=== PATIENT | female | born 1935 | race Caucasian/White ===

== ENCOUNTER 2017-02-27 10:48 | Observation (INO) | payer MEDICARE ==
[2017-02-27] MEDS ORDERED: HOME MEDICATION LIST NEEDED 1 EA EACH MC ONE (11:15)
[2017-02-27] MEDS ORDERED: ACETAMINOPHEN 325 MG TABLET PO PRN (15:05)
--- NOTE | 2017-02-27 15:43 | CT REPORT ---
HISTORY: Right sided weakness. COMPARISON: None. TECHNIQUE: Axial non-contrast images obtained from skull vertex through foramen magnum. Dose reduction technique was utilized. FINDINGS: Results 1.7 cm slightly hyperdense lesion in the left posterior frontal subcortical region on image 2 4 series 2. There are surrounding decreased attenuation areas which are consistent with vasogenic hugo ma and minimal local mass effect. There is no midline shift. There are areas of encephalomalacia noted in the right head of caudate nucleus, and the left thalamus which are unchanged from previous imaging and are consistent with areas of chronic infarction. There is also chronic infarction noted at the junction of the right temporal and parietal lobes on image 1 8 and 17 of series 2, this is new when compared to the prior study. Palmer-white matter differentiation is adequate, there is no hemorrhage or hydrocephalus, there is no a bnormal extra-axial collection, there is no bone lesion, the paranasal sinuses are clear. IMPRESSION: Age-appropriate atrophy and chronic ischemic change. Multiple areas of chronic infarction, 1 Compared to the prior study, no acute infarction. 1.7 cm left frontal mass lesion with vasogenic edema suggesting metastatic disease or less likely james sherrie neoplasm. Definitive characterization with pre and post contrast-enhanced MRI is advised if clin ically indicated. Results were discussed with the referring physician. Final Electronic Signature: This report was electronically signed by Blair Hickman MD, FACR on 2016 3:40 PM. patricia /
[2017-02-27] MEDS ORDERED: CARVEDILOL 3.125 MG TABLET PO SCH (17:00)
[2017-02-27] MEDS ORDERED: DEXAMETHASONE 4 MG/ML VIAL IV ONE (19:00)
[2017-02-27] MEDS ORDERED: DEXAMETHASONE 4 MG TABLET PO ONE ×2 (19:23→19:39)
[2017-02-27] MEDS: ATORVASTATIN CALCIUM 10 MG TABLET PO SCH (20:41)
[2017-02-27] MEDS: CARVEDILOL 3.125 MG TABLET PO SCH (20:41)
[2017-02-27] MEDS: LORazepam 0.5 MG TABLET PO PRN (21:24)
[2017-02-27 22:15] LABS: URINE COLOR DARK YELLOW
[2017-02-27 22:16] LABS: URINE APPEARANCE SLIGHTLY CLOUDY; URINE BILIRUBIN 0.5 mg/100ml (1+) (NEGATIVE); URINE BLOOD NEGATIVE (NEGATIVE); URINE GLUCOSE NORMAL (NEGATIVE); URINE KETONE 10mg/dL (1+) (NEGATIVE); URINE LEUKOCYTE ESTERASE NEGATIVE (NEGATIVE); URINE NITRITE NEGATIVE (NEGATIVE); URINE PH 5.5 (5-7); URINE PROTEIN NEGATIVE (NEG - TRACE); URINE SPECIFIC GRAVITY 1.025 (0.001-1.035); URINE UROBILINOGEN 0.2mg/dL (Normal) (NEG-1mg/dL)
[2017-02-27 22:20] LABS: URINE BACTERIA NONE SEEN (<10/hpf); URINE CALCIUM OXALATE CRYSTALS OCCASIONAL (Occasional); URINE MUCUS UP TO 25%/lpf (Up to 25%); URINE RBC 0-5/hpf (0-5/hpf); URINE SQUAMOUS EPITHELIAL CELL 0-5/hpf (<= 15/hpf); URINE WBC 0-4/hpf (0-4/hpf)
[2017-02-28] MEDS ORDERED: DEXAMETHASONE 4 MG/ML VIAL IV SCH (01:00)
[2017-02-28] MEDS: DEXAMETHASONE 4 MG TABLET PO SCH ×5 (01:00→23:14)
[2017-02-28] MEDS: LEVOTHYROXINE 50 MCG TABLET PO SCH (06:22)
--- NOTE | 2017-02-28 09:08 | PROGRESS NOTE: IM APSO ---
Assessment and Plan - Date of Encounter Date of Encounter: 02/28/17 (1) Neoplasm of brain causing mass effect on adjacent structures Status: Acute Assessment and plan: Presenting with recurrent right-sided weakness with prior stroke affecting the side of her body. There is evidence of a nonacute stroke at the margin of the left parietal temporal region. However, she also has a left frontal mass with some adjacent edema which may be contributing. She is now on dexamethasone and has already noted some neurologic improvement. She will work with physical therapy today for functionality and safety. I spoke with the patient and her daughter (who is a family physician) regarding her situation. She is still not convinced that she would like to do an MRI scan of the brain or a CT scan of the chest, abdomen, and pelvis. The tentative plan is for her to go home tomorrow with additional assistance from family. They will let me know if they would like further evaluation and oncology consultation versus hospice consultation. Current Visit: Yes (2) History of CVA (cerebrovascular accident) Status: Chronic Assessment and plan: See discussion above. She remains on aspirin. No evidence of bleeding. Right- sided weakness as above. Physical therapy pending. Has had some improvement with dexamethasone. Current Visit: Yes (3) Weakness of right side of body Status: Acute Current Visit: Yes (4) Hypertension, benign Status: Chronic Current Visit: Yes (5) Hypercholesterolemia Status: Chronic Current Visit: No (6) Hypothyroidism (acquired) Status: Chronic Current Visit: No (7) DVT prophylaxis Status: Acute Assessment and plan: Hold off on Lovenox considering brain mass. SCDs if she tolerates. Current Visit: Yes - Time Spent With Patient Total time spent with greater than 50% in coordination of care (as documented) at patient's floor/unit and/or counseling patient: 25 - 35 minutes Estimated anticipated discharge: Tomorrow. IM: PN Subjective General: no confusion, no pain, no fever, no chills HEENT: no headache Cardiovascular: no chest pain, no palpitations Respiratory: no cough, no SOB Gastrointestinal: no abdominal pain, no nausea, no vomiting, no constipation Genitourinary: no dysuria Musculoskeletal: swelling (Mild, right lower extremity.), no pain Neurological: limb weakness (Right lower extremity more than right upper extremity. Better this morning.), no numbness, no tingling IM: PN Objective Exam - I&O/Vital Signs I&O: Intake & Output 02/27/17 02/28/17 02/28/17 21:59 05:59 13:59 Intake Total 440 560 Output Total 0 725 Balance 440 -165 Weight 78.5 kg 78.5 kg Intake: Oral 440 560 Output: Urine 0 725 Other: Urine Appearance Clear Urine Color Yellow Dark Lorna Voiding Method Bedside Commode Bedside Commode Vital Signs: Last Vital Signs Temp 36.4 C L 02/28/17 06:32 Pulse 66 02/28/17 06:32 Resp 14 02/28/17 07:58 BP 148/80 02/28/17 06:32 Pulse Ox 91 02/28/17 07:58 Oxygen Delivery Method Room Air - Constitutional General appearance: Absent: acute distress - Head Head exam: Present: atraumatic - Eye Eye exam: Present: normal appearance - ENT ENT exam: Present: mucous membranes moist - Respiratory Respiratory exam: Present: rales (Minimal bibasilar.). Absent: decreased breath sounds, wheezes - Cardiovascular Cardiovascular exam: Present: RRR, systolic murmur (Crescendo/decrescendo. Diffuse.) - GI/Abdominal GI/Abdominal exam: Present: normal bowel sounds, soft. Absent: organomegaly, tenderness - Extremities Exam Extremities exam: Present: edema (Trace, right greater than left.). Absent: calf tenderness - Neurological Exam Neurological exam: Present: motor sensory deficit (Strength 4/5 at the right shoulder and 4+/5 diffusely involving the right leg. Light touch sensation is intact.), oriented X3 - Psychiatric Psychiatric exam: Present: flat affect (Mild. However, fair eye contact, good interaction.). Absent: anxious - Allied Health Notes Allied health notes reviewed: nursing - Lab Labs: Laboratory Last Values Urine Color Dark yellow A 02/27/17 20:58 Urine Appearance Slightly cloudy 02/27/17 20:58 Urine pH 5.5 (5-7) 02/27/17 20:58 Ur Specific [place] 1.025 (0.001-1.035) 02/27/17 20:58 Urine Protein Negative (NEG - TRACE) 02/27/17 20:58 Urine Ketones 10mg/dl (1+) (NEGATIVE) A 02/27/17 20:58 Urine Blood Negative (NEGATIVE) 02/27/17 20:58 Urine Nitrate Negative (NEGATIVE) 02/27/17 20:58 Urine Bilirubin 0.5 mg/100ml (1+) (NEGATIVE) A 02/27/17 20:58 Urine Urobilinogen 0.2mg/dl (normal) (NEG-1mg/dL) 02/27/17 20:58 Ur Leukocyte Esterase Negative (NEGATIVE) 02/27/17 20:58 Urine RBC 0-5/hpf (0-5/hpf) 02/27/17 20:58 Urine WBC 0-4/hpf (0-4/hpf) 02/27/17 20:58 Ur Squamous Epith Cells 0-5/hpf (<= 15/hpf) 02/27/17 20:58 Calcium Oxalate Crystal Occasional (Occasional) A 02/27/17 20:58 Urine Bacteria None seen (<10/hpf) 02/27/17 20:58 Hyaline Casts 5-10/lpf (0-5/lpf) A 02/27/17 20:58 Urine Mucus Up to 25%/lpf (Up to 25%) 02/27/17 20:58 Urine Glucose Normal (NEGATIVE) 02/27/17 20:58 Quality Questions - VTE Prophylaxis Assessment VTE Present on Admission?: No Patient at risk for venous thromboembolism?: Yes VTE Risk Level: High Risk Pharmaceutical VTE prophylaxis contraindication reason: contraindicated Mechanical VTE prophylaxis contraindication reason: N/A- VTE prophylaxsis ordered
[2017-02-28] MEDS: SERTRALINE HCL 50 MG TABLET PO SCH (09:10)
[2017-02-28] MEDS: CARVEDILOL 3.125 MG TABLET PO SCH ×2 (09:10→21:55)
[2017-02-28] MEDS: LISINOPRIL 5 MG TABLET PO SCH (09:10)
[2017-02-28] MEDS: ASCORBIC ACID PO SCH (09:13)
[2017-02-28] MEDS: FERROUS FUMARATE PO SCH (09:13)
[2017-02-28] MEDS: ATORVASTATIN CALCIUM 10 MG TABLET PO SCH (21:34)
[2017-02-28] MEDS: LORazepam 0.5 MG TABLET PO PRN (23:14)
[2017-03-01] MEDS: DEXAMETHASONE 4 MG TABLET PO SCH (06:14)
[2017-03-01] MEDS: LEVOTHYROXINE 50 MCG TABLET PO SCH (06:14)
[2017-03-01 06:21] LABS: BASOPHILS 0.2 % (0.0-2.0); HEMATOCRIT 37.2 % (36.0-48.0); HEMOGLOBIN 12.1 g/dL (12.0-16.0); LYMPHOCYTES 11.9 % (20.0-40.0); LYMPHOCYTES# 0.8 X 10^3uL (0.8-3.8); MEAN CELL VOLUME 89.9 fL (80.0-100.0); MEAN CORPUS. HGB CONCENTRATION 32.5 g/dL (32.0-36.0); MEAN CORPUSCULAR HEMOGLOBIN 29.2 pg (29.0-35.0); MEAN PLATELET VOLUME 8.7 fL (7.4-10.4); MONOCYTES 3.2 % (2.0-10.0); MONOCYTES# 0.2 X 10^3uL (0.2-1.0); NEUTROPHILS# 5.6 X 10^3uL (2.6-6.7); PLATELET COUNT 306 X 10^3uL (130-440); RED BLOOD COUNT 4.14 X 10^6uL (4.20-6.10); RED CELL DISTRIBUTION WIDTH 13.4 % (11.5-14.5); WHITE BLOOD COUNT 6.6 X 10^3uL (3.9-10.7)
[2017-03-01] MEDS ORDERED: LEVOTHYROXINE 25 MCG TABLET ONE (06:26)
[2017-03-01] MEDS ORDERED: LEVOTHYROXINE 75 MCG TABLET ONE (06:28)
[2017-03-01 06:34] LABS: A/G RATIO 0.9; ALBUMIN 3.5 g/dL (3.5-5.0); ALKALINE PHOSPHATASE 83 U/L (38-126); ALT 26 U/L (9-52); AST 18 U/L (14-36); BILIRUBIN, TOTAL 0.5 mg/dL (0.2-1.3); BLOOD UREA NITROGEN 32 mg/dL (7-17); CALCIUM 9.2 mg/dL (8.4-10.2); CHLORIDE 107 mmol/L (98-107); GLUCOSE 153 mg/dL (70-100); POTASSIUM 3.9 mmol/L (3.5-5.1); SODIUM 142 mmol/L (137-145); TOTAL PROTEIN 7.4 g/dL (6.3-8.2)
[2017-03-01 06:43] LABS: NEUTROPHILS 84.7 % (54.0-75.0)
[2017-03-01 07:14] VITALS: BP 156/68; PULSE 53; TEMP 98.4; O2SAT 92
[2017-03-01] MEDS: LISINOPRIL 5 MG TABLET PO SCH (08:16)
[2017-03-01] MEDS: CARVEDILOL 3.125 MG TABLET PO SCH (08:16)
[2017-03-01] MEDS: SERTRALINE HCL 50 MG TABLET PO SCH (08:17)
[2017-03-01] MEDS: ASCORBIC ACID PO SCH (08:18)
[2017-03-01] MEDS: FERROUS FUMARATE PO SCH (08:18)
[2017-03-01 08:57] VITALS: RESP 18
--- NOTE | 2017-03-01 09:43 | DC SUMMARY: IM Note ---
Discharge Summary: IM/Peds Provider: Date of Admission: 02/27/17 Admitting Provider: PATRIZIA RICE MD Attending Provider: PATRIZIA RICE MD Discharging Provider: YUN JONES MD Primary Care Provider: Discharge Date: 03/01/17 - Diagnosis (1) Neoplasm of brain causing mass effect on adjacent structures Status: Acute (2) History of CVA (cerebrovascular accident) Status: Chronic (3) Weakness of right side of body Status: Acute (4) Hypertension, benign Status: Chronic (5) Hypercholesterolemia Status: Chronic (6) Hypothyroidism (acquired) Status: Chronic (7) DVT prophylaxis Status: Acute Hospital Course: As documented, patient admitted for right-sided weakness with CT scan showing a new left side frontal mass consistent with metastatic disease versus possible primary brain lesion. With some adjacent edema. Evidence of prior infarcts on the left side likely affecting right-sided strength as well. Given an IV dose of steroids and transitioned to oral dexamethasone. Some response with this. Work with physical therapy and able to transfer and ambulate with minimal assistance. Multiple discussions with the patient regarding her current medical status. She is not interested in further workup or medical treatment for cancer at this time. She declines MRI of the brain, CT scan of the chest/ abdomen/pelvis, as well as oncology consultation. Will discharge to home on Decadron for the next week. Dr. Rice to decide in the outpatient setting about stopping this or continuing depending upon her course and goals. Hospice consult ordered. In the meantime, home health care with RN and PT. With regard to other medical issues, she did have mild bradycardia during hospitalization without symptoms. She was continued on her usual Coreg as well as her usual lisinopril. She was not hypotensive. She was continued on her usual antidepressant medication, and this may need to be titrated in the outpatient setting. She did not have significant pain and no headache. With the dexamethasone, she did develop hyperglycemia with a glucose of about 150 on the morning of discharge. Considering goals of care, the decision was made to follow this for now without additional treatment. - Time Spent with Patient Total time spent providing and/or coordinating discharge services: Discharge - Patient/Caregiver Discharge Instructions Activity Level: As tolerated. Fall risk. Diet: As tolerated. Follow up: PATRIZIA RICE MD [Primary Care Provider] - 7 Days Overall discharge status: patient is progressing back to baseline Print Language: ARABIC Home Medications: Dexamethasone [Decadron*] 4 mg PO Q6H #28 tab Orders: Home Health Care Location: Determined By Patient Hospice Care Location: Determined By Patient Disposition: HOME HEALTH CARE Discharge Summary Data - Medication History Medication History: Home Medications Atorvastatin Calcium [Lipitor*] 20 mg PO DAILY 02/27/17 Carvedilol [Coreg*] 3.125 mg PO BID 02/27/17 Ferrous Fumarate/Ascorbic Acid [Sis-Sequels 65-25 mg Caplet] 1 each PO DAILY 02/27/17 Levothyroxine [Synthroid*] 50 mcg PO EVERY MORNING 02/27/17 Lisinopril [Prinivil*] 5 mg PO DAILY 02/27/17 Sertraline HCl [Zoloft] 25 mg PO DAILY 02/27/17 aspirin EC [Aspirin EC*] 81 mg PO DAILY 02/27/17 Acetaminophen [Tylenol*] 650 mg PO Q6H PRN 03/01/17 Dexamethasone [Decadron*] 4 mg PO Q6H #28 tab 03/01/17 Inpatient Medications 02/27/17 15:05 Acetaminophen [Tylenol] 650 mg PO Q6H PRN 02/27/17 18:31 LORazepam [Ativan] 0.5 mg PO Q6H PRN 02/27/17 21:00 Atorvastatin Calcium [Lipitor] 20 mg PO HS Carvedilol [Coreg] 3.125 mg PO BID 02/28/17 00:00 Dexamethasone [Decadron] 4 mg PO Q6H 02/28/17 06:30 Levothyroxine [Synthroid] 75 mcg PO BEFORE BREAKFAST 02/28/17 09:00 Ferrous Fumarate/Ascorbic Acid [Sis-Sequels 65-25 mg Caplet] 1 each PO DAILY Lisinopril [Prinivil] 5 mg PO DAILY Sertraline HCl [Zoloft] 25 mg PO DAILY aspirin EC [Ecotrin 81 mg] 81 mg PO DAILY Procedures and tests throughout hospitalization: Completed Lab Orders 02/27/17 20:58 UA W/ MICRO -CULTURE IF IND [URINE] Urgent 03/01/17 06:10 CBC AUTO DIF, MDIF/RMOR IF IND [HEM] AMDRAW cmp [COMPREHENSIVE METABOLIC PANEL] [CHEM] AMDRAW Completed Imaging Orders 02/27/17 11:21 ct [CAT SCAN; HEAD W/O CON 26957] [CT] Urgent Pending Orders 02/27/17 11:15 Admit: Observation Routine Activity: Ambulate with Assist TID Activity: BRP w/ Assist Only . Assess pulse oximetry Daily Intake and Output QSHIFT I&O Resuscitation Status Routine Telemetry monitoring CONTINUOUS TELE Titrate Oxygen TITRATE B/W 88-92% Vital Signs ROUTINE VITALS (Q4H) Cupola Worker Consult [CM] Routine Physical Therapy Eval and Treatment [PT] Routine 02/27/17 15:05 Acetaminophen [Tylenol] 650 mg PO Q6H PRN 02/27/17 18:31 LORazepam [Ativan] 0.5 mg PO Q6H PRN 02/27/17 21:00 Atorvastatin Calcium [Lipitor] 20 mg PO HS Carvedilol [Coreg] 3.125 mg PO BID 02/27/17 Lunch Cardiac [DIET] 02/28/17 00:00 Dexamethasone [Decadron] 4 mg PO Q6H 02/28/17 06:30 Levothyroxine [Synthroid] 75 mcg PO BEFORE BREAKFAST 02/28/17 09:00 Ferrous Fumarate/Ascorbic Acid [Sis-Sequels 65-25 mg Caplet] 1 each PO DAILY Lisinopril [Prinivil] 5 mg PO DAILY Sertraline HCl [Zoloft] 25 mg PO DAILY aspirin EC [Ecotrin 81 mg] 81 mg PO DAILY 02/28/17 09:18 Sequential Compression Device IN BED OR CHAIR Labs on day of discharge: Labs from last 24 hours 03/01/17 06:10 WBC 6.6 RBC 4.14 L Hgb 12.1 Hct 37.2 MCV 89.9 D MCH 29.2 D MCHC 32.5 RDW 13.4 D Plt Count 306 MPV 8.7 Neutrophils % 84.7 H Lymphocytes % 11.9 L Eosinophils % 0.0 Basophils % 0.2 Neutrophils # 5.6 Lymphocytes # 0.8 Monocytes 3.2 Monocytes # 0.2 Eosinophils # 0.0 Basophils # 0.0 Sodium 142 Potassium 3.9 Chloride 107 Carbon Dioxide 24 BUN 32 H D Creatinine 0.9 GFR Calculation Not Reportable Glucose 153 H Calcium 9.2 Total Bilirubin 0.5 AST 18 ALT 26 Alkaline Phosphatase 83 Total Protein 7.4 Albumin 3.5 Albumin/Globulin Ratio 0.9 IM: Discharge Physical Exam - I&O/Vital Signs I&O: Intake & Output 02/28/17 03/01/17 03/01/17 21:59 05:59 13:59 Intake Total 800 350 Output Total 300 375 Balance 500 -25 Intake: Oral 800 350 Output: Urine 300 375 Other: Urine Appearance Clear Clear Clear Urine Color Yellow Yellow Yellow Voiding Method Bedside Commode Bedside Commode Bedside Commode # Voids 2 Vital Signs: Last Vital Signs Temp 36.9 C 03/01/17 07:00 Pulse 53 L 03/01/17 07:00 Resp 18 03/01/17 08:54 BP 156/68 03/01/17 07:00 Pulse Ox 92 03/01/17 08:54 Oxygen Delivery Method Room Air - Constitutional General appearance: Absent: acute distress - Head Head exam: Present: atraumatic - Eye Eye exam: Present: normal appearance - ENT ENT exam: Present: mucous membranes moist - Respiratory Respiratory exam: Present: rales (Minimal bibasilar.). Absent: decreased breath sounds, wheezes - Cardiovascular Cardiovascular exam: Present: RRR, systolic murmur (Crescendo/decrescendo. Diffuse.) - GI/Abdominal GI/Abdominal exam: Present: normal bowel sounds, soft. Absent: organomegaly, tenderness - Extremities Exam Extremities exam: Present: edema (Trace, right greater than left.). Absent: calf tenderness - Neurological Exam Neurological exam: Present: motor sensory deficit (Strength 4/5 at the right shoulder and 4+/5 diffusely involving the right leg. Light touch sensation is intact.), oriented X3 - Psychiatric Psychiatric exam: Present: flat affect (Mild. However, fair eye contact, good interaction.). Absent: anxious - Allied Health Notes Allied health notes reviewed: nursing
== END 2017-03-01 09:43 | disposition home health service (06) ==
LOC: IN 10:48
PROVIDERS: ADMIT Family Medicine; ATTEND Family Medicine
DX: D49.6 Neoplasm of unspecified behavior of brain (principal); I69.351 Hemiplegia and hemiparesis following cerebral infarction affecting right dominant side; I10 Essential (primary) hypertension; E03.9 Hypothyroidism, unspecified; E78.00 Pure hypercholesterolemia, unspecified; D50.9 Iron deficiency anemia, unspecified; Z79.899 Other long term (current) drug therapy
CPT/HCPCS: 36415; 70450; 80053; 81001; 85025; 93041; 99225; G0378; G0379; G8978; G8979; G8980

== ENCOUNTER 2017-03-05 10:28 | Emergency (ER) | payer MEDICARE ==
[2017-03-05 11:15] LABS: ALBUMIN 2.8 g/dL (3.5-5.0); ALKALINE PHOSPHATASE 59 U/L (38-126); ALT 28 U/L (9-52); AST 14 U/L (14-36); BILIRUBIN, DIRECT 0.3 mg/dL (0.0-0.4); BILIRUBIN, TOTAL 0.4 mg/dL (0.2-1.3); BLOOD UREA NITROGEN 38 mg/dL (7-17); CHLORIDE 107 mmol/L (98-107); GLUCOSE 139 mg/dL (70-100); LIPASE 296 U/L (23-300); POTASSIUM 3.8 mmol/L (3.5-5.1); SODIUM 138 mmol/L (137-145)
[2017-03-05 11:20] LABS: BASOPHILS 0.2 % (0.0-2.0); EOSINOPHILS 0.8 % (0.0-6.0); HEMATOCRIT 32.9 % (36.0-48.0); HEMOGLOBIN 10.6 g/dL (12.0-16.0); LYMPHOCYTES 10.8 % (20.0-40.0); MEAN CORPUS. HGB CONCENTRATION 32.1 g/dL (32.0-36.0); MEAN CORPUSCULAR HEMOGLOBIN 29.6 pg (29.0-35.0); MEAN PLATELET VOLUME 8.2 fL (7.4-10.4); MONOCYTES 5.5 % (2.0-10.0); NEUTROPHILS 82.7 % (54.0-75.0); PLATELET COUNT 303 X 10^3uL (130-440); RED BLOOD COUNT 3.57 X 10^6uL (4.20-6.10); RED CELL DISTRIBUTION WIDTH 13.4 % (11.5-14.5); WHITE BLOOD COUNT 12.3 X 10^3uL (3.9-10.7)
[2017-03-05 11:21] LABS: EOSINOPHILS# 0.1 X 10^3uL (0.0-0.4); LYMPHOCYTES# 1.3 X 10^3uL (0.8-3.8); MONOCYTES# 0.7 X 10^3uL (0.2-1.0); NEUTROPHILS# 10.2 X 10^3uL (2.6-6.7)
[2017-03-05 13:00] LABS: HEMATOCRIT 30.7 % (36.0-48.0)
--- NOTE | 2017-03-05 13:47 | ER PHYSICIAN DOCUMENTATION ---
Physician Documentation [facility] Name:Leni Chung Age:81 yrs Sex:Female :1935 Arrival Date:03/05/2017 Time:10:28 Bed3 Private MD: Joe Whitehead Disposition: 03/05/17 13:09 Transfer ordered to [facility]. Diagnosis is GI Bleeding. - Reason for transfer: Specialty. - Accepting physician is Dr. Haynes. - Condition is Serious. - Problem is new. - Symptoms are unchanged. COBRA Form completed? Yes Transfer - Mode of Transportation Ambulance HPI: 03/05 10:52 This 81 yrs old Female presents to ER via Private Vehicle with complaints of jm GI Bleed. 10:52 The patient presents to the emergency department with rectal bleeding, a moderate jm amount, "filled toilet". Abdominal pain: none is appreciated. Associated signs and symptoms: Pertinent negatives: chest pain, fever, shortness of breath. Severity of symptoms: in the emergency department the symptoms are unchanged. The patient has not experienced similar symptoms in the past. The patient has not recently seen a physician. 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 She felt an urge to BM this AM and then couldn't make it to the toilet on time and sprayed about 300cc of maroonish blood on the floor. Pt is a DNR, but has trouble making up her mind if she wants to be transferred to [facility], if she wants blood, if she wants a colonoscopy, ect. She states she doesn't want to be in pain. . Historical: - Allergies: No known drug Allergies; - Home Meds: 1. atorvastatin oral 2. carvedilol 3.125 mg oral tab 1 tab 2 times per day with food 3. levothyroxine 50 mcg oral tab 1 tab once daily 4. lisinopril 5 mg oral tab 1 tab once daily 5. atorvastatin 20 mg oral tab 1 tab once daily 6. sertraline 25 mg oral tab 1 tab once daily 7. Iron CR Oral 8. aspirin 81 mg oral tab 1 tab once daily - PMHx: Cancer; Pre Diabetic; HYPERTENSION; Cerebrovascular Accident (CVA)(February 19, 2016); Syncope (March 16, 2016); Anemia (March 16, 2016); Allergic Conjunctivitis (March 16, 2016); - PSHx: HYSTERECTOMY; - Ebola Screening: : Patient negative for fever greater than or equal to 101.5 degrees Fahrenheit, and additional compatible Ebola Virus Disease symptoms. Patient denies exposure to infectious person. Patient denies travel to an Ebola-affected area in the 21 days before illness onset. No symptoms or risks identified at this time. . - Immunization history: Pneumococcal vaccine is up to date, Flu Vaccine < 1 year. - Social history: Smoking status: Patient states former smoker of tobacco. Patient/guardian denies using alcohol, street drugs, IV drugs, marijuana. - Advance directive:: Yes. - Code Status:: No code. ROS: 10:59 Constitutional: Negative for fatigue, fever, malaise. jm 10:59 Cardiovascular: Negative for chest pain. 10:59 Respiratory: Negative for cough, shortness of breath. 10:59 Abdomen/GI: Positive for rectal bleeding, Negative for abdominal pain, nausea, vomiting, diarrhea. 10:59 Neuro: Negative for dizziness, weakness. 10:59 All other systems are negative. Exam: 10:59 Constitutional: The patient appears alert, awake, comfortable. jm 10:59 Eyes: Periorbital structures: appear normal, Pupils: equal, round, and reactive to light and accomodation. 10:59 ENT: Mouth: is normal, Posterior pharynx: is normal. 10:59 Neck: Thyroid: appears normal, Trachea: is midline with no obvious abnormalities. 10:59 Chest/axilla: Inspection: normal, Palpation: is normal. 10:59 Cardiovascular: Rate: bradycardic, Rhythm: regular. 10:59 Respiratory: Respirations: normal, Breath sounds: are normal. 10:59 Abdomen/GI: Bowel sounds: normal, Palpation: abdomen is soft and non-tender. 10:59 Back: pain, is absent, CVA tenderness, is absent. 10:59 Musculoskeletal/extremity: Extremities: all appear grossly normal, with no appreciated pain with palpation, Pulses: are normal with no appreciated deficits. 10:59 Skin: Appearance: Color: pink, no rash present. 10:59 Neuro: Mentation: is normal, Memory: is normal. 10:59 Psych: Behavior/mood is pleasant, cooperative, angry, Affect is calm. Vital Signs: 10:25 BP 150 / 63; Pulse 51; Resp 18; Temp 98.4; Pulse Ox 95% on R/A; il1 10:38 BP 140 / 68 (auto/); sc1 10:39 Pulse Ox 95% ; il1 11:04 BP 165 / 71 (auto/); sc1 11:14 Pulse Ox 95% ; il1 12:31 BP 122 / 64 (auto/); sc1 12:34 Pulse Ox 99% ; sc1 12:34 Pulse 45; Resp 18; sc1 13:01 BP 160 / 57 (auto/); sc1 13:04 Pulse Ox 99% ; sc1 13:04 Pulse 45; Resp 18; il1 MDM: 10:30 Patient medically screened. 12:57 Differential diagnosis: diverticulitis, hemorrhagic shock, varices, malignant bleed. bernadette Data reviewed: vital signs, nurses notes, old medical records, lab test result(s), and as a result, I will *Transfer Patient. Counseling: I had a detailed discussion with the patient and/or guardian regarding: the historical points, exam findings, and any diagnostic results supporting the discharge/admit diagnosis, lab results, the need to transfer to another facility. ED course: Pt lost 1 g of blood since last CBC done a few days ago. Very long discussion had w pt and family about transfer to see GI vs comfort care. After risks, benefits, and alternatives were d/w, pt decided she would see GI to see if they could stop this bleed. Pt did have another large maroon colored BM while here w syncope after. Pt recovered afterwards w normal BP. I spoke w Dr. Rosales who said she would do an EGD to look for a source of bleeding. Pt will go down by ambulance. DNR taken down by EMS. 13:08 Physician consultation: Dr Haynes was called at 13:00, was contacted at 13:05, bernadette regarding. 03/05 11:07 Order name: INR W/ CAPI DRAW; Complete Time: : EDMD 03/05 11:17 Order name: BASIC METABOLIC PANEL; Complete Time: : EDMD 03/05 11:17 Order name: HEPATIC PANEL; Complete Time: : EDMS 03/05 11:17 Order name: LIPASE; Complete Time: : EDMD 03/05 11:21 Order name: CBC AUTO DIF, MDIF/RMOR IF IND; Complete Time: 11:28 [facility] 03/05 13:00 Order name: HGBS HCTS PANEL; Complete Time: 13:04 [facility] 03/05 10:31 Order name: Continuous Cardiac Monitoring; Complete Time: 10:36 03/05 10:31 Order name: Hemocult Stool 03/05 10:31 Order name: I & O; Complete Time: 10:36 03/05 10:31 Order name: NPO; Complete Time: 10:36 03/05 10:31 Order name: Oxygen; Complete Time: 13:50 03/05 10:31 Order name: Pulse Ox Continuous; Complete Time: 10:36 Dispensed Medications: 10:20 Drug: NS 0.9% 1000 ml; Route: IV; Rate: bolus; Site: right forearm; Delivery: [place] sc1 Tubing; 12:48 Follow up: IV Status: Completed infusion; IV Intake: 1000ml sc1 13:28 Follow up: IV Status: Infusing continued upon transfer; IV Intake: 250ml sc1 11:10 Drug: Protonix 8 mg/hr; Route: IV; Rate: calculated rate; Site: right forearm; sc1 Delivery: Pump; 13:49 Follow up: IV Status: Infusing continued upon transfer; IV Intake: 28ml sc1 12:40 Drug: NS 0.9% 1000 ml; Route: IV; Rate: bolus; Site: right forearm; sc1 13:28 Follow up: IV Status: Infusing continued upon transfer; IV Intake: 250ml sc1 Signatures: Heydi Hernández RN RN [facility] [place] Miller MD MD
--- NOTE | 2017-03-05 13:47 | ER NURSING DOCUMENTATION ---
Nurse's Notes [facility] Name:Leni Chung Age:81 yrs Sex:Female :1935 Arrival Date:03/05/2017 Time:10:28 Bed3 Private MD: Diagnosis:GI Bleeding Presentation: 03/05 10:31 Presenting complaint: Patient states: syncopal episode this morning followed by approx. sc1 300cc of dark red blood. Pt. is a CA pt. with DNAR orders. Transition of care: Home. 10:31 Acuity: LINNEA 3 sc1 10:31 Method Of Arrival: Private Vehicle sc1 Triage Assessment: 11:29 General: Appears in no apparent distress, well developed, well nourished, well groomed, sc1 Behavior is cooperative, pleasant. Pain: Denies pain. Historical: - Allergies: No known drug Allergies; - Home Meds: 1. atorvastatin oral 2. carvedilol 3.125 mg oral tab 1 tab 2 times per day with food 3. levothyroxine 50 mcg oral tab 1 tab once daily 4. lisinopril 5 mg oral tab 1 tab once daily 5. atorvastatin 20 mg oral tab 1 tab once daily 6. sertraline 25 mg oral tab 1 tab once daily 7. Iron CR Oral 8. aspirin 81 mg oral tab 1 tab once daily - PMHx: Cancer; Pre Diabetic; HYPERTENSION; Cerebrovascular Accident (CVA)(February 19, 2016); Syncope (March 16, 2016); Anemia (March 16, 2016); Allergic Conjunctivitis (March 16, 2016); - PSHx: HYSTERECTOMY; - Ebola Screening: : Patient negative for fever greater than or equal to 101.5 degrees Fahrenheit, and additional compatible Ebola Virus Disease symptoms. Patient denies exposure to infectious person. Patient denies travel to an Ebola-affected area in the 21 days before illness onset. No symptoms or risks identified at this time. . - Immunization history: Pneumococcal vaccine is up to date, Flu Vaccine < 1 year. - Social history: Smoking status: Patient states former smoker of tobacco. Patient/guardian denies using alcohol, street drugs, IV drugs, marijuana. - Advance directive:: Yes. - Code Status:: No code. Screenin:31 Infectious Disease Risk None. Abuse screen: Denies threats or abuse. Nutritional sc1 screening: No deficits noted. Assessment: 12:35 Reassessment: Got pt. up to BR. pt. walked to BR w/ assist. I stood with pt. while she sc1 had a had a large dark red diarrhea and pt. became unresponsive, apneic, pale for approx. 1 minute. Called for assistance, pt. became responsive and we assisted her back to bed. VSS.. Vital Signs: 10:25 BP 150 / 63; Pulse 51; Resp 18; Temp 98.4; Pulse Ox 95% on R/A; sc1 10:38 BP 140 / 68 (auto/); sc1 10:39 Pulse Ox 95% ; sc1 11:04 BP 165 / 71 (auto/); sc1 11:14 Pulse Ox 95% ; sc1 12:31 BP 122 / 64 (auto/); sc1 12:34 Pulse Ox 99% ; sc1 12:34 Pulse 45; Resp 18; sc1 13:01 BP 160 / 57 (auto/); sc1 13:04 Pulse Ox 99% ; sc1 13:04 Pulse 45; Resp 18; sc1 ED Course: 10:30 Patient arrived in ED. dp 10:30 Joe Miller MD is Attending Physician. jm 10:31 Heydi Hernández, RASHAUN is Primary Nurse. sc1 10:32 Triage completed. sc1 11:30 Notified ED Physician of patient's arrival and chief complaint. Dr. Miller notified. Arm sc1 band placed on Bed in low position Call Light in Reach Gowned HOB Elevated. Labs ordered per protocol. 13:30 Valuables Given to family. sc1 Administered Medications: 10:20 Drug: NS 0.9% 1000 ml; Route: IV; Rate: bolus; Site: right forearm; Delivery: [place] sc1 Tubing; 12:48 Follow up: IV Status: Completed infusion; IV Intake: 1000ml sc1 13:28 Follow up: IV Status: Infusing continued upon transfer; IV Intake: 250ml sc1 11:10 Drug: Protonix 8 mg/hr; Route: IV; Rate: calculated rate; Site: right forearm; [facility] [place] Delivery: Pump; 13:49 Follow up: IV Status: Infusing continued upon transfer; IV Intake: 28ml sc1 12:40 Drug: NS 0.9% 1000 ml; Route: IV; Rate: bolus; Site: right forearm; wa1 13:28 Follow up: IV Status: Infusing continued upon transfer; IV Intake: 250ml wa1 Intake: 12:48 IV: 1000ml; Total: 1000ml. wa1 13:28 IV: 250ml; Total: 1250ml. wa1 13:28 IV: 250ml; Total: 1500ml. wa1 13:49 IV: 28ml; Total: 1528ml. wa1 Outcome: 12:41 Transferred: Patient will be transferred to: [facility] ([place], [place]). Facility [facility] Acceptance Time: March 05, 2017 at 12:41 Patient's face sheet was faxed to accepting facility. Face Sheet included patient's name, address, age, gender, contact information and insurance information. Patient [place] be [place]: [facility] [place]. 13:09 ER care complete, transfer ordered by . bernadette 13:30 Condition: unchanged [facility] 13:30 Report given to Radha RODNEY 13:30 Instructed on need for transfer Demonstrated understanding of 13:46 Patient left the ED. [facility] Signatures: Heydi Hernández RN RN wa1 Joe Miller MD MD jm Palacios, Denise dp
== END 2017-03-05 13:47 | disposition short-term general hospital (02) ==
LOC: ER 10:28
DX: K92.1 Melena (principal); R55 Syncope and collapse; R00.1 Bradycardia, unspecified; C80.1 Malignant (primary) neoplasm, unspecified; C79.31 Secondary malignant neoplasm of brain; Z66 Do not resuscitate; I10 Essential (primary) hypertension; R73.03 Prediabetes; Z79.82 Long term (current) use of aspirin; Z79.899 Other long term (current) drug therapy; Z74.3 Need for continuous supervision
CPT/HCPCS: 36415; 80048; 80076; 83690; 85014; 85018; 85025; 85610; 96361; 96365; 96366; 99285; 99291; A0425; A0427